=== PATIENT | male | born 1980 | race Caucasian/White ===

== ENCOUNTER 2016-04-09 09:49 | Emergency (ER) | payer SELFPAY ==
[~2016-04-09] VITALS: Ht 180.3 cm; Wt 75.0 kg
[2016-04-09] MEDS ORDERED: NORCO 7.5/321 TABLET PO ×2 (11:01→11:34)
[2016-04-09] MEDS ORDERED: AUGMENTIN875 MG PO (11:01)
[2016-04-09] MEDS ORDERED: MOTRIN800 MG PO (11:01)
[2016-04-09 12:09] VITALS: BP 133/94
== END 2016-04-09 12:10 ==
LOC: EME 09:49
PROC: 3E0234Z Introduction of Serum, Toxoid and Vaccine into Muscle, Percutaneous Approach (ICD-10-PCS; principal; 2016-04-09)
DX: S01.512A Laceration without foreign body of oral cavity, initial encounter (principal); S01.81XA Laceration without foreign body of other part of head, initial encounter; S16.1XXA Strain of muscle, fascia and tendon at neck level, initial encounter; S00.83XA Contusion of other part of head, initial encounter; S20.219A Contusion of unspecified front wall of thorax, initial encounter; S02.32XA Fracture of orbital floor, left side, initial encounter for closed fracture; Y09 Assault by unspecified means; Y07.499 Other family member, perpetrator of maltreatment and neglect; R45.1 Restlessness and agitation; F10.99 Alcohol use, unspecified with unspecified alcohol-induced disorder; R00.0 Tachycardia, unspecified; Z23 Encounter for immunization; F17.200 Nicotine dependence, unspecified, uncomplicated
CPT/HCPCS: 70450; 70486; 71020; 71120; 72040; 81003; 99281; 99284; J3010